=== PATIENT | female | born 1990 | race African-American/Black ===

== ENCOUNTER 2017-03-09 08:59 | Emergency (ER) | payer MEDICAID ==
[~2017-03-09] VITALS: Ht 154.9 cm; Wt 52.2 kg
[2017-03-09] MEDS ORDERED: TraMADol HCL 50 MG TABLET PO ONE (11:00)
[2017-03-09] MEDS ORDERED: KETOROLAC TROMETHAMINE 60 MG/2 ML VIAL IM ONE (11:00)
[2017-03-09 13:11] VITALS: BP 106/77
== END 2017-03-09 13:14 | disposition home or self-care (01) ==
LOC: EMS 09:01
DX: S00.83XA Contusion of other part of head, initial encounter (principal); M26.622 Arthralgia of left temporomandibular joint; Y04.2XXA Assault by strike against or bumped into by another person, initial encounter; Y93.89 Activity, other specified; Y92.89 Other specified places as the place of occurrence of the external cause; Y99.8 Other external cause status
CPT/HCPCS: 70486; 81025; 96372; 99284; J1885